=== PATIENT | female | born 1975 | race Caucasian/White ===

== ENCOUNTER 2023-12-10 20:47 | Emergency (ER) | payer MEDICAID ==
[~2023-12-10] VITALS: Ht 167.6 cm; Wt 65.8 kg
[2023-12-10] MEDS ORDERED: AMOX500C2 PO (21:35)
[2023-12-10] MEDS ORDERED: KETO10TA2 PO (21:35)
[2023-12-10 21:37] VITALS: BP 160/85; TEMP 98; O2SAT 98
[2023-12-10] MEDS ORDERED: KETOROLAC TROMETHAMINE INJ 60 MG/2 ML VIAL IM ONE ×2 (21:38→22:00)
[2023-12-10] MEDS ORDERED: AMOXICILLIN TRIHYDRATE 250 MG CAPSULE ONE (21:38)
[2023-12-10] MEDS ORDERED: AMOXICILLIN TRIHYDRATE 500 MG CAPSULE PO ONE (22:00)
== END 2023-12-10 21:46 | disposition home or self-care (01) ==
LOC: ER 20:53
DX: K03.2 Erosion of teeth (principal); Z79.899 Other long term (current) drug therapy
CPT/HCPCS: 99283; 96372; J1885